=== PATIENT | male | born 1990 | race Caucasian/White ===

== ENCOUNTER 2023-01-21 14:10 | Emergency (ER) | payer MEDICAID ==
[~2023-01-21] VITALS: Ht 160 cm; Wt 63.5 kg
[2023-01-21 14:25] VITALS: BP_SYST 142; PULSE 85; RESP 20; TEMP 98.5; O2SAT 98
[2023-01-21] MEDS ORDERED: KETOROLAC TROMETHAMINE 60 MG/2 ML VIAL IM ONE (14:45)
[2023-01-21] MEDS ORDERED: BACITRACIN 1 GM OINT TP ONE (15:31)
[2023-01-21] MEDS ORDERED: DICL75TA5 PO (15:49)
[2023-01-21] MEDS ORDERED: DICL20GE TP (15:49)
[2023-01-21] MEDS ORDERED: BACI15OI13 TP (15:49)
[2023-01-21] MEDS ORDERED: ONDA-8 TL (15:55)
[2023-01-21] MEDS ORDERED: ONDANSETRON 4 MG ODT TAB PO ONE (16:00)
[2023-01-21 16:06] VITALS: BP_SYST 142; PULSE 85; RESP 20; TEMP 98.5; O2SAT 98
== END 2023-01-21 16:03 | disposition home or self-care (01) ==
LOC: SED 14:10
DX: S30.0XXA Contusion of lower back and pelvis, initial encounter (principal); S20.229A Contusion of unspecified back wall of thorax, initial encounter; Z79.899 Other long term (current) drug therapy; Y04.0XXA Assault by unarmed brawl or fight, initial encounter; Y93.89 Activity, other specified; Y92.89 Other specified places as the place of occurrence of the external cause; Y99.8 Other external cause status
CPT/HCPCS: 99284; 72072; 72100; 96372; Q0162; J1885

== ENCOUNTER 2023-01-29 15:37 | Emergency (ER) | payer MEDICAID ==
[~2023-01-29] VITALS: Ht 170.2 cm; Wt 76.7 kg
[~2023-01-29 15:37] MED LIST: BACI15OI13 TP; DICL20GE TP; DICL75TA5 PO; ONDA-8 TL
[2023-01-29 15:53] VITALS: BP_SYST 108; PULSE 82; RESP 18; TEMP 98.2; O2SAT 95
[2023-01-29 16:05] VITALS: BP_SYST 108; PULSE 82; RESP 18; TEMP 98.2; O2SAT 95
== END 2023-01-29 16:05 | disposition home or self-care (01) ==
LOC: SED 15:37
DX: Z48.02 Encounter for removal of sutures (principal)
CPT/HCPCS: 99281